=== PATIENT | female | born 1955 | race Two or more races ===

== ENCOUNTER 2018-09-08 04:32 | Emergency (ER) | payer OTHER ==
--- NOTE | 2018-09-08 04:38 | PDOC ---
History of Present Illness - General Stated Complaint: SYNCOPE - History of Present Illness Initial Comments: The pt is a 63F w/ a history of hyperthyroidism, HTN, and HLD who presents for evaluation after fall from standing. The pt reports waking from bed to help her daughter to the bathroom when she felt dizzy and the woke on the floor. She does not remember falling. She denies hitting her head. In the ED currently she denies any symptoms. She denies fevers, recent illness, chest pain, trouble breathing, abdominal pain , N/V/C/D, or changes in sensation/strength 09/08/18 05:05 Past History - Past Medical History Allergies/Adverse Reactions: Allergies Allergy/AdvReac Type Severity Reaction Status Date / Time aspirin Allergy Verified 09/08/18 05:19 Review of Systems - Review of Systems Able to Perform ROS?: Yes Comments:: GENERAL/CONSTITUTIONAL: No fever or chills. No weakness HEAD, EYES, EARS, NOSE AND THROAT: No change in vision. No ear pain or discharge. No sore throat CARDIOVASCULAR: No chest pain or shortness of breath RESPIRATORY: Denies cough, hemoptysis GASTROINTESTINAL: No nausea, vomiting, diarrhea or constipation GENITOURINARY: No dysuria, frequency, or change in urination MUSCULOSKELETAL: No joint or muscle swelling or pain. No neck or back pain SKIN: No rash NEUROLOGIC: No headache, or change in strength/sensation ENDOCRINE: No increased thirst. No abnormal weight change HEMATOLOGIC/LYMPHATIC: No anemia, easy bleeding, or history of blood clots ALLERGIC/IMMUNOLOGIC: No hives or skin allergy 09/08/18 04:37 Is the patient limited Syriac proficient: No *Physical Exam - Vital Signs 09/08/18 05:12 - Physical Exam Comments: GENERAL: Awake, alert, and oriented to person/place/time, in no acute distress HEAD: No signs of trauma, normocephalic, atraumatic EYES: PERRLA, EOMI, sclera anicteric, conjunctiva clear ENT: Hearing grossly normal, nares patent, oropharynx clear without exudates. Moist mucosa LUNGS: No distress, speaks full sentences, clear to auscultation bilaterally HEART: Regular rate and rhythm, normal S1 and S2, no murmurs appreciated, peripheral pulses normal and equal bilaterally ABDOMEN: Soft, nontender, normoactive bowel sounds. No guarding, no rebound EXTREMITIES: Normal inspection, Normal range of motion, no edema. No clubbing or cyanosis NEUROLOGICAL: Cranial nerves II through XII grossly intact. Normal speech, no focal sensorimotor deficits SKIN: Warm, Dry 09/08/18 04:38 ED Treatment Course - LABORATORY CBC & Chemistry Diagram: 09/08/18 05:30 09/08/18 05:30 Medical Decision Making - Medical Decision Making The pt is a 63F w/ a history of HTN, HLD, and hyperthyroidism who presents for evaluation s/p syncopal fall from standing ED Course CMP, CBC, Trop I ECG CXR CT head 09/08/18 05:12 Trop I neg Lytes wnl No THUY LFTs wnl No leukocytosis No anemia CXR w/o acute pathology CT head w/o acute bleed Pt continues to be asymptomatic in the ED Ambulating w/ stable gait Plan for D/C w/ PCP f/u Discharge instructions and return precautions given Pt in agreement and verbalized understanding Dispo: home 09/08/18 06:43 *DC/Admit/Observation/Transfer Diagnosis at time of Disposition: Vasovagal episode - Discharge Dispostion Disposition: HOME Condition at time of disposition: Stable Decision to Admit order: No - Referrals - Patient Instructions Printed Discharge Instructions: DI for Syncope in Adults (Fainting) Additional Instructions: You were seen in the Emergency Department for evaluation after a syncopal episode. Your labs were unremarkable and your imaging was negative for acute pathology. Review the handout provided at discharge. Follow up with your primary care provider within the week. Return to the Emergency Department if you develop fevers/chills, headache, vision changes, chest pain, trouble breathing, changes in sensation/strength, worsening symptoms, or any new/ concerning symptoms. Usted fue visto en el Departamento de Emergencias para marsha evaluacin despus de un episodio sincopal. Helene laboratorios fueron normales y saldivar imagen fue negativa para patologa aguda. Revise el folleto provisto al momento del ernie. Jose un seguimiento con saldivar proveedor de atencin primaria dentro de la semana. Regrese al Departamento de Emergencias si presenta fiebre / escalofros, dolor de link, cambios en la visin, dolor en el pecho, dificultad para respirar, cambios en la sensacin / fuerza, empeoramiento de los sntomas o cualquier sntoma nuevo o relacionado. Print Language: KAZAKH - Post Discharge Activity
--- NOTE | 2018-09-08 04:39 | PDOC ---
Attending Attestation - Resident Resident Name: Harlan Handley - ED Attending Attestation I have performed the following: I have examined & evaluated the patient, The case was reviewed & discussed with the resident, I agree w/resident's findings & plan - HPI HPI: 09/08/18 05:36 63-year-old female with syncopal episode after getting up to help her granddaughter to the bathroom. She denies preceding chest pain headache or shortness of breath. She states she did feel dizzy which has now resolved. - Physicial Exam PE: 09/08/18 05:37 Agree with resident's exam - Medical Decision Making 09/08/18 05:37 63-year-old female status post syncopal episode, witnessed by family after getting up to help her granddaughter Patient is currently asymptomatic EKG shows a sinus rhythm and no acute ST segment changes and no change from previous Plan for labs, CT scan of the brain and chest x-ray with likely discharged home History and exam is most consistent with a vasovagal episode
[2018-09-08 05:19] VITALS: BP 113/62; PULSE 82; TEMP 97.8; BMI 28.3
[2018-09-08 05:38] LABS: HEMATOCRIT 38.7 % (32.4-45.2); HEMOGLOBIN 13.2 GM/dL (10.7-15.3); MCH 29.4 pg (25.7-33.7); MCHC 34.2 g/dl (32.0-36.0); MEAN PLT VOLUME 9.4 fl (7.5-11.1); PLATELET COUNT 190 K/MM3 (134-434); RDW 13.6 % (11.6-15.6); WHITE BLOOD COUNT 6.2 K/mm3 (4.0-10.0)
[2018-09-08 06:08] LABS: ALBUMIN 3.3 g/dl (3.4-5.0); ALK PHOS 71 U/L (45-117); ANION GAP 7 MMOL/L (8-16); BILIRUBIN,TOTAL 0.4 mg/dL (0.2-1); BLOOD UREA NITROGEN 10 mg/dL (7-18); CALCIUM 8.5 mg/dL (8.5-10.1); CHLORIDE 108 mmol/L (98-107); CO2 24 mmol/L (21-32); CREATININE 0.8 mg/dL (0.55-1.3); GLUCOSE,RANDOM 118 mg/dL (74-106); POTASSIUM 4.2 mmol/L (3.5-5.1); SGOT/AST 29 U/L (15-37); SGPT/ALT 21 U/L (13-61); SODIUM 138 mmol/L (136-145); TOT PROT 6.9 g/dl (6.4-8.2)
--- NOTE | 2018-09-08 10:56 | EKG ---
Test Reason : Blood Pressure : / mmHG Vent. Rate : 058 BPM Atrial Rate : 058 BPM P-R Int : 168 ms QRS Dur : 076 ms QT Int : 452 ms P-R-T Axes : 000 188 161 degrees QTc Int : 443 ms SINUS BRADYCARDIA RIGHT SUPERIOR AXIS DEVIATION T WAVE ABNORMALITY, CONSIDER INFERIOR ISCHEMIA ABNORMAL ECG NO PREVIOUS ECGS AVAILABLE Confirmed by ARMANDO GOMEZ MD ([id number]) on 09/08/2018 10:55:48 AM Referred By: Confirmed By:ARMANDO GOMEZ MD
== END 2018-09-08 06:51 | disposition home or self-care (01) ==
LOC: JER 04:32
DX: R55 Syncope and collapse (principal); I10 Essential (primary) hypertension; E78.5 Hyperlipidemia, unspecified; E05.90 Thyrotoxicosis, unspecified without thyrotoxic crisis or storm
CPT/HCPCS: 36415; 70450-TC; 71045-TC-FY; 80053; 84484; 85027; 93005; 93010; 99282-25